=== PATIENT | male | born 1960 | race Caucasian/White ===

== ENCOUNTER 2023-04-02 05:04 | Observation (INO) ==
--- NOTE | 2023-02-21 12:06 | PAT Medication Instructions ---
Medication Instructions Date of Service February 21, 2023 Home Medications B-complex with vitamin C 1 tab PO QAM Medical Marijuana 1 dose inhalation UD PRN amlodipine 10 mg-benazepril 40 mg capsule 1 cap PO QAM aspirin 81 mg capsule 81 mg PO QAM atorvastatin 40 mg tablet 40 mg PO HS cetirizine 10 mg tablet 10 mg PO QAM cyclobenzaprine 5 mg tablet 5 mg PO HS PRN docusate sodium 100 mg capsule 100 mg PO BID fluticasone propionate 50 mcg/actuation nasal spray,suspension 1 spray intranas al HS PRN gabapentin 300 mg capsule 300 mg PO TID hydrochlorothiazide 25 mg tablet 25 mg PO QAM meloxicam 15 mg tablet 15 mg PO QAM multivitamin with minerals-folic acid 80 mcg chewable tablet 2 tab PO QAM oxycodone-acetaminophen 5 mg-325 mg tablet 1 tab PO TID PRN vitamin C 45 mg-zinc citrate 3.75 mg-elderberry 50 mg chewable tablet ([facility]) 1 tab PO QAM ASK your surgeon for instructions meloxicam 15 mg tablet 15 mg PO QAM ASK your prescriber and surgeon aspirin 81 mg capsule 81 mg PO QAM STOP taking 2 weeks before surgery (or as soon as possible if surgery is within 2 weeks) vitamin C 45 mg-zinc citrate 3.75 mg-elderberry 50 mg chewable tablet ([facility]) 1 tab PO QAM DO NOT take the morning of surgery B-complex with vitamin C 1 tab PO QAM Medical Marijuana 1 dose inhalation UD PRN amlodipine 10 mg-benazepril 40 mg capsule 1 cap PO QAM cetirizine 10 mg tablet 10 mg PO QAM docusate sodium 100 mg capsule 100 mg PO BID hydrochlorothiazide 25 mg tablet 25 mg PO QAM multivitamin with minerals-folic acid 80 mcg chewable tablet 2 tab PO QAM Take morning of surgery With a small sip of water, OTHERWISE NOTHING TO EAT OR DRINK AFTER MIDNIGHT: gabapentin 300 mg capsule 300 mg PO TID oxycodone-acetaminophen 5 mg-325 mg tablet 1 tab PO TID PRN(if needed) Take evening before surgery atorvastatin 40 mg tablet 40 mg PO HS cyclobenzaprine 5 mg tablet 5 mg PO HS PRN(if needed) docusate sodium 100 mg capsule 100 mg PO BID gabapentin 300 mg capsule 300 mg PO TID oxycodone-acetaminophen 5 mg-325 mg tablet 1 tab PO TID PRN(if needed) fluticasone propionate 50 mcg/actuation nasal spray,suspension 1 spray intranasal HS PRN(if needed) Other Notes If you have any questions please call us at [phone] or [phone] or or [phone]
--- NOTE | 2023-02-27 09:36 | Anesthesiology Consultation ---
Date of Service February 27, 2023 Assessment & Plan (1) Encounter for pre-operative examination: Chart Review Chart Review: Acceptable Risk for Surgery (pending PCP clearance ) and Patient seen in Pre Admission Testing - Awaiting PCP clearance 03/18/23- (ZHOU Ross) (please fax preop testing) Pt currently scheduled as 23 hours observation. If surgeon decides to change patient to Same Day Joint, patient would be acceptable risk for TKA, pending patient is motivated, has good support and surgeon's office completes [facility] preop requirements. Per PAT appt on 02/27/23, no recent illness/disease exposures, illness related symptoms, or recent illness/disease positive tests. Will leave to surgeon's discretion if preop Covid testing needed Teaching & Discussion Pre-Anesthesia Teaching/Discussion Notes: Instructed NPO after midnight before surgery,except medications with 15 cc of water. Medication instructions provided according to the PAT guidelines. History Surgery Operation Date: 04/02/23 07:15 Proposed Procedures p Right Total Knee Arthroplasty - Boris Pate DO Height/Weight Height: 6 ft 2 in Weight: 127.6 kg Allergies Allergy/AdvReac Type Severity Reaction Status Date / Time No Known Allergies Allergy Verified 02/21/23 08:02 Medications Home Medications Medication Instructions Recorded Confirmed Last Taken B-complex with vitamin C 1 tab PO QAM 02/21/23 02/21/23 Unknown Medical Marijuana 1 dose inhalation UD PRN Pain 02/21/23 02/21/23 Unknown amlodipine 10 mg-benazepril 40 mg 1 cap PO QAM 02/21/23 02/21/23 Unknown capsule aspirin 81 mg capsule 81 mg PO QAM 02/21/23 02/21/23 Unknown atorvastatin 40 mg tablet 40 mg PO HS 02/21/23 02/21/23 Unknown cetirizine 10 mg tablet 10 mg PO QAM 02/21/23 02/21/23 Unknown cyclobenzaprine 5 mg tablet 5 mg PO HS PRN muscle spasms 02/21/23 02/21/23 Unknown docusate sodium 100 mg capsule 100 mg PO BID 02/21/23 02/21/23 Unknown fluticasone propionate 50 1 spray intranasal HS PRN 02/21/23 02/21/23 Unknown mcg/actuation nasal Congestion spray,suspension gabapentin 300 mg capsule 300 mg PO TID 02/21/23 02/21/23 Unknown hydrochlorothiazide 25 mg tablet 25 mg PO QAM 02/21/23 02/21/23 Unknown meloxicam 15 mg tablet 15 mg PO QAM 02/21/23 02/21/23 Unknown multivitamin with minerals-folic 2 tab PO QAM 02/21/23 02/21/23 Unknown acid 80 mcg chewable tablet oxycodone-acetaminophen 5 mg-325 1 tab PO TID PRN Pain 02/21/23 02/21/23 Unknown mg tablet vitamin C 45 mg-zinc citrate 3.75 1 tab PO QAM 02/21/23 02/21/23 Unknown mg-elderberry 50 mg chewable tablet ([facility]) Past Medical History Medical History Medical cannabis use daily History of anesthesia reaction after fall pt "intubated and became agitated and had to be given more sedative" Hx of fall 2014, fall from a tree>multiple rib fractures, fx pelvix, fx shoulder blade, burst fx in thoracic area of back (numbness in lt hip to knee, and rt knee)>chronic pain Environmental and seasonal allergies Gets allergy shots q 4 weeks Hyperlipidemia Hypertension Exercise / Class Metabolic Activity II 4-5 Yardwork/Stairs/Walk up hill (one flight of stairs - no chest pain or SOB - uses walking stick for ambulation ) Past Surgical History Surgical History Hx of arthroscopy of right knee History of open reduction and internal fixation (ORIF) procedure for pelvic fx.>xray every year to make sure hardware intact Hx of colonoscopy Hx of left inguinal hernia repair Hx of umbilical hernia repair x2 History of lumbar surgery x3 Past Anesthesia History No Hx of Anesthesia Complications (with exception to combativeness while intubated - no other issues with anesthesia ) and No Family Hx of Anesthesia Complications History of PONV No Hx of PONV and No Hx of Motion Sickness Social History Smoking Status: Current some day smoker tobacco type: cigars Smoking cigarettes per day: occasional cigar Do You Dip or Chew Tobacco: No Hx Alcohol Use: Yes Alcohol type: beer, wine and hard liquor alcohol intake frequency: a few times a week Hx Substance Use: Yes (medical card) substance use type: marijuana Last Used Substance Other:: daily Review of Systems - Hx of snoring- occ/possible witnessed apnea- no hx of sleep study Patient denies chest pain, shortness of breath, dyspnea on exertion, reflux, cough, wheezing, palpitations. No hx of seizures, stroke, CA. No hx of blood clots or blood transfusions Physical Exam Vital Signs VITALS BP 136/78 P 73 TEMP 98.0 SP02 96% RESP 16 Constitutional no acute distress ENMT Mouth: no TMJ clicking Thyromental Distance: > or= 3.5 Finger Breadths (3.5) Mallampati Class: III Neck neck extension not limited Respiratory normal respiratory effort; no respiratory distress Auscultation: lungs clear to auscultation bilaterally; no wheezes Cardiovascular Rate/Rhythm: regular rate and regular rhythm Heart Sounds: no murmur Vessels: no carotid bruit Musculoskeletal Spine: no pain with cervical ROM Extremities: extremities normal to inspection Psychiatric Orientation: alert Lab Results Anesthesia Preop Results Results Anesthesia Widget: WBC 10.89 K/ul (4.8-10.8) H 02/27/23 Hgb 15.3 g/dl (14.0-18.0) 02/27/23 Hct 45.2 % (42.0-52.0) 02/27/23 Plt 267 K/uL (130-400) 02/27/23 Na 139 mmol/L (136-145) 02/27/23 K 4.6 mmol/L (3.5-5.1) 02/27/23 Cl 103 mmol/L (98-107) 02/27/23 CO2 30 mmol/L (21-32) 02/27/23 BUN 23 mg/dl (6-23) 02/27/23 Creat 0.80 mg/dl (0.6-1.4) 02/27/23 Glucose Level 95 mg/dl (70-99(Fasting)) 02/27/23 PT 10.6 Seconds (9.0-12.0) 02/27/23 PTT 27.9 Seconds (21.0-31.0) 02/27/23 INR 1.0 (0.9-1.1) 02/27/23 HA1c 5.7 % (4.5-5.6) H 02/27/23 Urine Color Dark Yellow 02/27/23 Urine Appearance Clear (Clear) 02/27/23 Urine pH 5.0 (4.5-7.5) 02/27/23 Urine Specific [place] 1.020 (1.000-1.030) 02/27/23 Urine Protein Negative (Negative) 02/27/23 Urine Glucose (UA) Negative (Negative) 02/27/23 Urine Ketones Negative (Negative) 02/27/23 Urine Blood Negative (Negative) 02/27/23 Urine Nitrite Negative (Negative) 02/27/23 Urine Bilirubin Negative (Negative) 02/27/23 Urine Urobilinogen Negative (Negative) 02/27/23 Urine Leukocyte Esterase Negative (Negative) 02/27/23 Blood Type O Positive 02/27/23 Antibody Screen NEGATIVE 02/27/23 Testing Electrocardiogram Date: 02/27/23 Findings: + NSR @ (65bpm ) Possible old inferior infarct Poor R wave progression, consider anterior CA versus lead placement versus LVH (EKG scanned in from 07/26/21 (from PCP office) showed inferior infarct with PRWP- discussed with Dr. Kaplan- patient seeing PCP for clearance- patient can proceed as scheduled at this time without additional evaluation/work up) Chest X-Ray Date: 02/27/23 Findings: + NAD
--- NOTE | 2023-03-04 12:13 | History & Physical Report ---
Date of Service March 04, 2023 date of surgery: 04/02/23 Procedure: Right Total Knee Arthroplasty Surgeon: Boris Pate, Assessment & Plan (1) Arthritis of right knee: Plan: Further care discussed with patient and at this point in time has failed cons ervative measures and would like to proceed with a right total knee replacement. Plan on discharge will be home with home health physical therapy. DVT prophylaxiswith TEDs, SCDs and will also place on aspirin 81 mg p.o. b.i.d. for a month postop. Patient will have follow up appointment in our office two weeks post op for staple/suture removal and re-evaluation. Patient otherwise has no other questions or concerns. The risks and benefits have been discussed including, but not limited to, risk of infection, nerve injury, stiffness, loss of motion, failure to improve, etc. Reasonable outcomes and options of treatment were discussed. An explanation of appropriate alternatives to the procedure that may be advantageous were discussed and their risks and benefits, as well as the risks and benefits of not proceeding with treatment. I offered to answer any additional inquiries concerning the treatment involved. All the patient's questions were answered. The patient is agreeable, understanding of the treatment plan and alternatives, and wishes to proceed with the treatment plan. History of Present Illness Chief Complaint: Right knee pain Primary Care Provider: EMMA Blackwell Boris is a 62 year old male who presented for preop prior to his right total knee replacement. he has a long standing history of right knee pain, has undergone prior right knee scope and occasionally using a walking stick to ambulate. he has undergone prior injections including visco injections as well as cortisone with minimal relief. He rates his current pain as 7 out of 10. Allergies Allergy/AdvReac Type Severity Reaction Status Date / Time No Known Allergies Allergy Verified 02/21/23 08:02 Home Medications Medication Instructions Recorded Confirmed Type B-complex with vitamin C 1 tab PO QAM 02/21/23 02/21/23 History Medical Marijuana 1 dose inhalation UD PRN Pain 02/21/23 02/21/23 History amlodipine 10 mg-benazepril 40 mg 1 cap PO QAM 02/21/23 02/21/23 History capsule aspirin 81 mg capsule 81 mg PO QAM 02/21/23 02/21/23 History atorvastatin 40 mg tablet 40 mg PO HS 02/21/23 02/21/23 History cetirizine 10 mg tablet 10 mg PO QAM 02/21/23 02/21/23 History cyclobenzaprine 5 mg tablet 5 mg PO HS PRN muscle spasms 02/21/23 02/21/23 History docusate sodium 100 mg capsule 100 mg PO BID 02/21/23 02/21/23 History fluticasone propionate 50 1 spray intranasal HS PRN 02/21/23 02/21/23 History mcg/actuation nasal Congestion spray,suspension gabapentin 300 mg capsule 300 mg PO TID 02/21/23 02/21/23 History hydrochlorothiazide 25 mg tablet 25 mg PO QAM 02/21/23 02/21/23 History meloxicam 15 mg tablet 15 mg PO QAM 02/21/23 02/21/23 History multivitamin with minerals-folic 2 tab PO QAM 02/21/23 02/21/23 History acid 80 mcg chewable tablet oxycodone-acetaminophen 5 mg-325 1 tab PO TID PRN Pain 02/21/23 02/21/23 History mg tablet vitamin C 45 mg-zinc citrate 3.75 1 tab PO QAM 02/21/23 02/21/23 History mg-elderberry 50 mg chewable tablet ([employer]) Past Med/Surg History Medical History Medical cannabis use daily History of anesthesia reaction after fall pt "intubated and became agitated and had to be given more sedative" Hx of fall 2014, fall from a tree>multiple rib fractures, fx pelvix, fx shoulder blade, burst fx in thoracic area of back (numbness in lt hip to knee, and rt knee) >chronic pain Environmental and seasonal allergies Gets allergy shots q 4 weeks Hyperlipidemia Hypertension Surgical History Hx of arthroscopy of right knee History of open reduction and internal fixation (ORIF) procedure for pelvic fx.>xray every year to make sure hardware intact Hx of colonoscopy Hx of left inguinal hernia repair Hx of umbilical hernia repair x2 History of lumbar surgery x3 Social History Smoking Status: Current some day smoker Tobacco Type: Cigars Cigarettes Per Day: occasional cigar; Second Hand Exposure: No; Do You Dip or Chew Tobacco: No; Hx Alcohol Use: Yes Alcohol type: beer, wine and hard liquor Hx Substance Use: Yes (medical card) Last Used Substance Other:: daily Preferred Language: Turkmen Communication Ability: Effective Quality Controller Required: No Beliefs That Will Affect Care: None Current Living Situation: Spouse Feels Safe at Home: Yes Assistive Devices: Glasses Review of Systems Review of Systems: All systems reviewed & are unremarkable except as noted in HPI & below Constitutional: no fever, no chills and no sweats Respiratory: no cough and no dyspnea Cardiovascular: no chest pain, no dyspnea and no orthopnea Gastrointestinal: no abdominal pain, no nausea and no vomiting Musculoskeletal: as per Subjective / HPI Physical Exam Physical Exam: HT: 6ft 2in WT: 127.6kg Constitutional: WD/WN, vitals as above no acute distress Respiratory: normal respiratory effort, lungs clear to auscultation no respiratory distress, no labored breathing and does not use accessory muscles Cardiovascular: RRR, no murmur, no edema Gastrointestinal (Abdomen): normal bowel sounds, soft, nontender, no hepatosplenomegaly Musculoskeletal: Knee: + knee abnormal to inspection (Right Knee:), + effusion (+1 effusion), + surgical incision (well healed portals), + limited ROM of knee (ROM 0/3/110), + knee ROM with crepitation, + joint line tenderness (medial joint line) and + Lani's sign positive; no deformity, no skin erythema, no ecchymosis, no valgus laxity, no varus laxity, anterior drawer test negative, Earl's sign negative and pivot shift test negative Results & Data Results & Data Diagnostic Findings Right Knee X-ray: Right knee series showing advanced degenerative changes to the right knee, narrowing of the medial compartment and patello-femoral joint with patellar spurring noted, findings showing joint space narrowing of the medial compartment and patello-femoral joint, osteophyte formation and subchondral sclerosis noted. overall varus alignment. no acute bony pathology noted.
[2023-04-02] MEDS ORDERED: ROPIVACAINE 0.5% HCL/PF 150 MG, BUPIVACAINE 0.75% MPF 20 ML, EPINEPHrine 30MG/30ML (OR ... INSTIL SCH (06:00)
[2023-04-02] MEDS ORDERED: ACETAMINOPHEN 500 MG TAB PO SCH (06:00)
[2023-04-02] MEDS ORDERED: METOCLOPRAMIDE HCL 10 MG TABLET PO SCH (06:00)
[2023-04-02] MEDS ORDERED: LR 60ML/HR IV SCH (06:00)
[2023-04-02] MEDS ORDERED: LR 500ML BOLUS, THEN 15ML/HR IV SCH (06:00)
[2023-04-02] MEDS ORDERED: oxyCODONE HCL 10 MG TABCR (OxyCONTIN) PO SCH (06:00)
[2023-04-02] MEDS ORDERED: GABAPENTIN 600 MG DOSE PO SCH (06:00)
[2023-04-02] MEDS ORDERED: FAMOTIDINE 20 MG TAB PO SCH (06:00)
[2023-04-02] MEDS ORDERED: BUPIVACAINE LIPOSOME/PF 266 MG, BUPIVACAINE/EPINEPHRINE 50 ML, SODIUM CHLORIDE 0.9% PF ... INFIL SCH (06:00)
[2023-04-02] MEDS ORDERED: CeleBREX 200 MG CAP PO SCH (06:00)
[2023-04-02] MEDS ORDERED: dexAMETHasone 4 MG TAB PO SCH (06:00)
[2023-04-02] MEDS ORDERED: TRANEXAMIC ACID 1,000 MG **IV Pre-op IV SCH (06:00)
[2023-04-02] MEDS ORDERED: ceFAZolin 2000MG 2,000 MG/15 ML SYR IV SCH (06:00)
[2023-04-02] MEDS ORDERED: BUPIVACAINE 0.25% PF 30 ML VIAL ONE (06:18)
[2023-04-02] MEDS ORDERED: EPINEPHrine INJ 1 MG/ML AMP ONE (06:18)
[2023-04-02] MEDS ORDERED: DEXAMETHASONE SOD INJ 4 MG/ML VIAL ONE (06:18)
[2023-04-02] MEDS ORDERED: MEPIVACAINE HCL 1.5% 30 ML VIAL ONE (06:18)
[2023-04-02] MEDS ORDERED: MIDAZOLAM HCL 1 MG/ML 2ML VIAL ONE (06:47)
[2023-04-02] MEDS ORDERED: fentaNYL citrate PF 100 MCG/2 ML VIAL ONE (06:47)
[2023-04-02] MEDS ORDERED: ePHEDrine sulfate 50 MG/ML AMP IV PRN (07:10)
[2023-04-02] MEDS ORDERED: fentaNYL citrate PF 100 MCG/2 ML VIAL IV PRN (07:10)
[2023-04-02] MEDS ORDERED: ATROPINE SULFATE 0.1 MG/ML 10ML SYR IV PRN (07:10)
[2023-04-02] MEDS ORDERED: ONDANSETRON INJ 2 MG/ML 2 ML VIAL IV PRN ×2 (07:10→11:43)
--- NOTE | 2023-04-02 07:14 | History & Physical Bridge Note ---
Date of Service April 02, 2023 History & Physical Bridge Note I have examined the patient, reviewed the History & Physical and in the interval since the performance of the History & Physical I have noted the following changes of clinical significance: no changes noted
[2023-04-02] MEDS ORDERED: ORTHO JOINT ANESTHETIC ONE (07:16)
[2023-04-02] MEDS ORDERED: ONDANSETRON INJ 2 MG/ML 2 ML VIAL ONE (07:37)
[2023-04-02] MEDS ORDERED: PHENYLEPHRINE HCL 10 MG/ML VIAL ONE (07:43)
[2023-04-02] MEDS ORDERED: PROPOFOL IV EMULSION 10 MG/ML 20 ML VIAL IV ONE (08:28)
[2023-04-02] MEDS ORDERED: LIDOCAINE 2% 2 ML VIAL/AMP(20MG/ML) INFIL ONE (08:28)
--- NOTE | 2023-04-02 08:36 | Operative Report ---
Post Operative Report Pre & Post Diagnosis Operation Date: 04/02/23 07:15 Pre-Op Diagnosis: Right Knee Osteoarthritis Post-Op Diagnosis: Right Knee Osteoarthritis I identified the patient and participated in the time-out.: Yes Procedure Operation Date: 04/02/23 07:15 Actual Procedures p OP: Right Total Knee Arthroplasty(Right) utilizing [employer] journey 2 patient manage total knee arthroplasty size femur 7 tibia 7 Poly 10 patella 38 kash Pate DO Surgeon Boris Pate DO Campaign Developer Kendall EPPERSON Estimated Blood Loss 5 Findings Consistent with Post-Op Diagnosis Patient presents with severe end-stage tricompartmental degenerative joint disease varus alignment subchondral sclerosis marginal osteophytes eburnated [id number] with moderate large effusion Specimens Bone and cartilage Drains Medium bore Hemovac Anesthesia Type MAC Spinal Regional Complications none Disposition Accompanied Patient To Recovery: No Disposition: Recovery Room Indications Patient presents with severe end-stage DJD right knee failed attempted conservative management continue physical therapy anti-inflammatories relative rest activity modification corticosteroid injection viscosupplementation above intraoperative findings were noted Description of Procedure After proper prepping and draping of the Right lower extremity anterior midline incision was made over the region of the extensor extensor mechanism after meticulous hemostasis was obtained and maintained in subcutaneous tissues a medial parapatellar incision was made The patella was subluxed lateralward the medial lateral gutter were cleaned from any hypertrophic synovitis and scar tissue of the distal femoral block was placed and the distal femoral osteotomy cut was made subsequently the chamfers anterior and posterior osteotomy cuts were made utilizing the 4-in-1 block the tibia was subsequently subluxed a nteriorward medial and ateral meniscal remnants were excised in their entirety remnants of the anterior and posterior cruciate ligaments were excised in their entirety excellent exposure of the proximal tibia was obtained the tibial osteotomy guide was placed on the proximal tibial osteotomy cut was made once again the knee was irrigated with copious amounts of sterile saline solution the patella was subsequently everted lateralward thickened scar tissue around the patella was removed the patella was subsequently cut utilizing a freehand technique and was drilled prepared for final preparation and placement of patella socially flexion-extension gaps were checked and the equal and symmetric trials were placed to the appropriate femoral and tibial trials with poly-spacer being placed for equal flexion and extension gaps and full range of motion including extension to 0 and flexion to 140 the trial components after having been taken to recovery range of motion was subsequently removed meticulous hemostasis was obtained and maintained subsequently a knee block injection of joint cocktail including ropivacaine 0.5% 150 mg. Bupivacaine 0.5% epinephrine 1-200,030 mL's toradol 30 mg dexamethasone 4 mg ketamine 10 mg clonidine 100 micrograms normal saline solution 30 mg was infiltrated into the soft tissues of the posterior knee medial lateral gutters and periosteal synovium special attention was paid to protect neurovascular structures at all times subsequently trial components having been removed the knee was irrigated with sterile saline solution. debris was removed the proximal tibia was subsequently prepared and was made ready for the placement of the tibial component tibial component was also cemented and tamped into position the femoral component was subsequently placed and cemented in the position the patellar component was subsequently cemented in position because hemostasis once again obtained and maintained wound having been thoroughly irrigated with debridement and debridement lavage was performed as well as a medial parapatellar incision closed with #1 Vicryl in interrupted fashion subcutaneous was closed with #2 Vicryl skin was closed with skin clips. PA-C was necessary for prepping and drapping as well as wound closure of deep fascia Sub cutaneous tissue and skin and was necessary for the case. A sterile compressive dressing was placed patient was taken to recovery in stable condition of report dictated by Rio I attest to the content of the Intraoperative Record and any orders documented therein. Any exceptions are noted below.Due to the complex nature of the procedure, the entire surgery was performed with the operational assistance of Kendall EPPERSON. The music assistant, under direct supervision, was involved in the actual performance of all aspects of the surgical procedure including hemostasis, tissue retraction and incision, instrument management, patient positioning, and wound closure. I attest to the content of the Intraoperative Record and any orders documented therein. Any exceptions are noted below.
[2023-04-02] MEDS ORDERED: KETOROLAC 30 MG/ML VIAL ONE (08:51)
[2023-04-02] MEDS ORDERED: oxyCODONE/ACETAMINOPHEN 5mg/325mg TAB PO PRN (09:13)
[2023-04-02] MEDS ORDERED: BUPIVACAINE 0.5 % 5 MG/1 ML PF 10ML VIAL ONE (09:35)
[2023-04-02] MEDS ORDERED: bisacodyL 10 MG SUPP PR PRN (11:43)
[2023-04-02] MEDS ORDERED: NALOXONE HCL 0.4 MG/1 ML VIAL/CARP IV PRN (11:43)
[2023-04-02] MEDS ORDERED: diphenhydrAMINE 50 MG/ML VIAL IV PRN (11:43)
[2023-04-02] MEDS ORDERED: MAGNESIUM HYDROXIDE SUSP 30 ML UDC PO PRN (11:43)
[2023-04-02] MEDS ORDERED: HYDROmorphone INJ 0.5 MG/0.5 ML SYR IV PRN (11:43)
[2023-04-02] MEDS ORDERED: SODIUM CHLORIDE 0.9% 1,000 ML IV SCH (11:45)
--- NOTE | 2023-04-02 11:55 | XRay Report ---
XR knee RT 1 or 2V routine CLINICAL HISTORY: Postoperative evaluation. COMPARISON: None FINDINGS: Alignment of the right knee arthroplasty is anatomic. There is no periprosthetic fracture or unexpected radiopaque foreign body. Surgical drain is in place. IMPRESSION: Expected findings following right knee arthroplasty. ACT 112: Negative or not required by law. Electronically signed by: Renny Barger M.D. 04/02/2023 11:53 AM
[2023-04-02] MEDS ORDERED: oxyCODONE HCL IR 5 MG TAB (IMMEDIATE RELEASE) ONE (12:00)
[2023-04-02] MEDS: oxyCODONE HCL IR 5 MG TAB (IMMEDIATE RELEASE) PO PRN ×2 (12:00→18:30)
[2023-04-02] MEDS ORDERED: CYCLOBENZAPRINE HCL 5 MG TAB PO PRN (13:21)
[2023-04-02] MEDS ORDERED: FLUTICASONE PROPIONATE NA SPR 16 GM BTL PRN (13:21)
--- NOTE | 2023-04-02 14:03 | Anesthesiology Progress Note ---
Date of Service April 02, 2023 Anesthesia Post Procedure Vital Signs Vital Signs: Temp Pulse Pulse Resp BP Pulse Ox O2 Del Method 04/02/23 12:45 37.0 C 88 18 151/87 H 93 Room Air 04/02/23 11:45 36.8 C 80 18 147/75 H 93 Room Air 04/02/23 10:45 36.7 C 78 18 148/91 H 96 Room Air 04/02/23 10:15 81 18 148/80 H 93 Room Air 04/02/23 09:44 36.7 C 73 18 136/85 94 Room Air 04/02/23 09:35 73 18 134/82 93 Room Air 04/02/23 09:30 37 C 73 17 126/78 96 Room Air 04/02/23 09:20 75 18 143/83 H 99 Oxymask 04/02/23 09:13 36.7 C 81 16 141/88 H 95 Oxymask 04/02/23 05:40 36.7 C 76 20 162/91 H 97 Room Air O2 Flow Rate 04/02/23 12:45 04/02/23 11:45 04/02/23 10:45 04/02/23 10:15 04/02/23 09:44 04/02/23 09:35 04/02/23 09:30 04/02/23 09:20 12 04/02/23 09:13 12 04/02/23 05:40 Pain Intensity Right Knee: Pain Intensity: 5 Transfer of Care Handoff Completed per policy Notes Mental Status: alert / awake / arousable Patient Amnestic to Procedure: Yes Nausea / Vomiting: adequately controlled Pain: adequately controlled Airway Patency, RR, SpO2: stable & adequate BP & HR: stable & adequate Hydration State: stable & adequate Anesthetic Complications: no major complications apparent
[2023-04-02] MEDS: GABAPENTIN 300 MG CAP PO SCH ×2 (14:54→20:22)
[2023-04-02] MEDS: ACETAMINOPHEN 500 MG TAB PO SCH ×2 (14:54→20:23)
[2023-04-02] MEDS: ceFAZolin 2000MG 2,000 MG/15 ML SYR IV SCH (18:30)
[2023-04-02] MEDS: DOCUSATE SODIUM 100 MG CAP PO SCH (20:22)
[2023-04-02] MEDS ORDERED: DOCUSATE SODIUM 100 MG CAP PO SCH (21:00)
[2023-04-02] MEDS ORDERED: ATORVASTATIN 40 MG TAB PO SCH (21:00)
[2023-04-02] MEDS ORDERED: SENNA 8.6 MG TAB PO SCH (21:00)
[2023-04-03] MEDS: oxyCODONE HCL IR 5 MG TAB (IMMEDIATE RELEASE) PO PRN ×2 (01:22→07:37)
[2023-04-03] MEDS: ceFAZolin 2000MG 2,000 MG/15 ML SYR IV SCH (01:23)
[2023-04-03] MEDS: ACETAMINOPHEN 500 MG TAB PO SCH (05:34)
[2023-04-03 06:30] LABS: Hemoglobin 12.6 g/dl (14.0-18.0); Mean Corpuscular Hemoglobin 29.9 pg (25.0-34.0); Mean Corpuscular Hgb Conc 34.1 g/dL (32.0-36.0); Mean Corpuscular Volume 87.9 fL (80.0-100.0); Mean Platelet Volume 10.4 fL (9.4-12.4); Platelet Count 279 K/uL (130-400); RDW Coefficient of Variation 11.7 % (11.5-14.5); RDW Standard Deviation 37.3 fL (36.4-46.3); Red Blood Count 4.21 M/uL (4.70-6.10); White Blood Count 22.67 K/ul (4.8-10.8)
[2023-04-03 06:58] LABS: BUN Creatinine Ratio 32.8 (10-20); Calcium 9.3 mg/dl (8.6-10.3); Creatinine Clr Calc Pharmacy 151.7 ml/min; Est GFR (African American) 117.7 ml/min; Est GFR (Non-African American) 101.5 ml/min; Potassium 4.2 mmol/L (3.5-5.1)
--- NOTE | 2023-04-03 07:20 | Orthopedic Progress Note ---
Date of Service April 03, 2023 Assessment & Plan (1) History of total right knee replacement: Plan: POD #1 s/p Right TKA pt/ot dvt proph with GEE/SCD/ASA plan for d/c home with HHPT Admission and Anticipated Discharge Date Admission Date: April 02, 2023 Subjective POD #1 s/p Right TKA Review of Systems Constitutional: no fever, no chills and no sweats Respiratory: no cough and no dyspnea Cardiovascular: no chest pain and no dyspnea Gastrointestinal: no abdominal pain, no nausea and no vomiting Physical Exam Physical Exam: Vital Signs Temp 36.8 C 04/03/23 02:54 Pulse 71 04/03/23 02:54 Resp 18 04/03/23 02:54 BP 162/88 H 04/03/23 02:54 Pulse Ox 96 04/03/23 02:54 O2 Del Method Room Air 04/03/23 02:54 O2 Flow Rate 12 04/02/23 09:20 Intake & Output 04/02/23 04/03/23 04/03/23 18:59 06:59 18:59 Intake Total 1900 / 3663.333 1763.333 / 3663.33 3 Output Total 105 / 1835 1730 / 1835 Balance 1795 / 1828.333 33.333 / 1828.333 Weight 117.5 kg Intake: IV 100 / 913.333 813.333 / 913.333 Lactated Ringe r's 1,000 ml @ 15 0 / 0 mls/hr IV .Q24 H WALTER Rx#: [id number] Sodium Chlorid e 0.9% 1,000 ml @ 813.333 / 813.333 100 mls/hr IV .Q10H [facility]ALTER Rx#: [id number] Tranexamic Aci d / 0.7% NaCl 1, 100 / 100 000 mg In 100 ml @ 600 mls/hr IV TODAY@0600 W[facility]TER Rx#:[id number] IV Perioperative 1100 / 1100 Oral 700 / 1650 950 / 1650 Output: Urine 1550 / 1550 Estimated Blood Loss 5 / 5 Drain Output 100 / 280 180 / 280 Right Knee Hem ovac 100 / 280 180 / 280 Musculoskeletal: Right Leg: NVDI, calf SNT, negative maris sign. DP palpable, able to wiggle toes/ankle movement without difficulty. dressing clean dry and intact. Results & Data Vital Signs (Past 12 Hours) Vital Signs Temp Pulse Resp BP Pulse Ox O2 Del Method 04/03/23 02:54 36.8 C 71 18 162/88 H 96 Room Air 04/02/23 23:41 36.6 C 73 18 166/79 H 94 Room Air 04/02/23 19:30 Room Air Laboratory Results Laboratory Results WBC 22.67 K/ul (4.8-10.8) H 04/03/23 05:58 RBC 4.21 M/uL (4.70-6.10) L 04/03/23 05:58 Hgb 12.6 g/dl (14.0-18.0) L 04/03/23 05:58 Hct 37.0 % (42.0-52.0) L 04/03/23 05:58 MCV 87.9 fL (80.0-100.0) 04/03/23 05:58 MCH 29.9 pg (25.0-34.0) 04/03/23 05:58 MCHC 34.1 g/dL (32.0-36.0) 04/03/23 05:58 RDW Std Deviation 37.3 fL (36.4-46.3) 04/03/23 05:58 RDW Coeff of Enrike 11.7 % (11.5-14.5) 04/03/23 05:58 Plt Count 279 K/uL (130-400) 04/03/23 05:58 MPV 10.4 fL (9.4-12.4) 04/03/23 05:58 Sodium 137 mmol/L (136-145) 04/03/23 05:58 Potassium 4.2 mmol/L (3.5-5.1) 04/03/23 05:58 Chloride 102 mmol/L (98-107) 04/03/23 05:58 Carbon Dioxide 28 mmol/L (21-32) 04/03/23 05:58 Anion Gap 7 (3-11) 04/03/23 05:58 BUN 22 mg/dl (6-23) 04/03/23 05:58 Creatinine 0.67 mg/dl (0.6-1.4) 04/03/23 05:58 Est Cr Clr Drug Dosing 151.7 ml/min 04/03/23 05:58 Est GFR ( Amer) 117.7 ml/min 04/03/23 05:58 Est GFR (Non-Af Amer) 101.5 ml/min 04/03/23 05:58 BUN/Creatinine Ratio 32.8 (10-20) H 04/03/23 05:58 Glucose 147 mg/dl (70-99(Fasting)) H 04/03/23 05:58 Calcium 9.3 mg/dl (8.6-10.3) 04/03/23 05:58 Impressions Knee X-Ray 04/02/23 09:13 XR knee RT 1 or 2V routine CLINICAL HISTORY: Postoperative evaluation. COMPARISON: None FINDINGS: Alignment of the right knee arthroplasty is anatomic. There is no periprosthetic fracture or unexpected radiopaque foreign body. Surgical drain is in place. IMPRESSION: Expected findings following right knee arthroplasty. ACT 112: Negative or not required by law. Electronically signed by: Renny Barger M.D. 04/02/2023 11:53 AM
[2023-04-03] MEDS: GABAPENTIN 300 MG CAP PO SCH (07:39)
[2023-04-03] MEDS: DOCUSATE SODIUM 100 MG CAP PO SCH (07:40)
[2023-04-03] MEDS ORDERED: MULTIVITAMIN TAB PO SCH (09:00)
[2023-04-03] MEDS ORDERED: hydroCHLOROthiazide 25 MG TAB PO SCH (09:00)
[2023-04-03] MEDS ORDERED: amLODIPine BESYLATE 5 MG TAB PO SCH ×2 (09:00)
[2023-04-03] MEDS ORDERED: ENALAPRIL MALEATE 10 MG TAB PO SCH (09:00)
[2023-04-03] MEDS ORDERED: CETIRIZINE HCL 10 MG TABLET PO SCH (09:00)
== END 2023-04-03 10:50 | disposition home health service (06) ==
LOC: 3E 05:04 → ASU 05:04